=== PATIENT | female | born 2005 | race Caucasian/White ===

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

== ENCOUNTER → 2023-01-22 | Outpatient (CLI) | payer BC ==
--- NOTE | 2023-01-22 17:33 | Diagnostic Imaging Report ---
EXAMINATION: US Thyroid. TECHNIQUE: Multiple real-time grayscale images were obtained of the thyroid in various projections. HISTORY: GOITER COMPARISON: None available. FINDINGS: The right lobe of the thyroid measures 5.3 x 1.4 x 1.9 cm. The right lobe is homogeneous without focal nodule. The left lobe of the thyroid measures 4.5 x 1.1 x 1.7 cm. There is a 0.7 cm solid, hypoechoic, wider than tall nodule with smooth margins. The isthmus is normal and measures 0.4 cm. No suspicious adenopathy within the visualized neck. IMPRESSION: 1. A 0.7 cm left thyroid nodule, TI-RADS 4. TI-RADS 1: Benign No FNA or follow-up required TI-RADS 2: Not Suspicious No FNA or follow-up required TI-RADS 3: Mildly Suspicious FNA if ? 2.5 cm Follow if ? 1.5 cm (At 1, 3 and 5 years from initial scan) TI-RADS 4: Moderately Suspicious FNA if ? 1.5 cm Follow if ? 1 cm (At 1, 2, 3 and 5 years from initial scan) TI-RADS 5: Highly Suspicious FNA if ? 1 cm Follow if ? 0.5 cm (Annually for 5 years from initial scan) Dictated by: Dictated on workstation # [id number]
== END ==
LOC: RAD 14:45
PROVIDERS: ATTEND Internal Medicine
DX: E04.1 Nontoxic single thyroid nodule (principal)
CPT/HCPCS: 76536